=== PATIENT | male | born 1950 | race Hispanic/Latino ===

== ENCOUNTER → 2021-07-24 | Outpatient (CLI) | payer OTHER ==
[~2021-07-24] MED LIST: MULT-1258 PO
== END | disposition home or self-care (01) ==
LOC: OIH 14:17
PROVIDERS: ATTEND Internal Medicine Cardiovascular Disease
DX: Z13.6 Encounter for screening for cardiovascular disorders (principal); I25.10 Atherosclerotic heart disease of native coronary artery without angina pectoris; I51.5 Myocardial degeneration
CPT/HCPCS: 75571

== ENCOUNTER → 2023-03-14 | Outpatient (CLI) | payer MEDICARE | END | disposition home or self-care (01) | LOC: RAH 11:07 | PROVIDERS: ATTEND Family Medicine | DX: G51.0 Bell's palsy (principal) | CPT/HCPCS: 70450 ==